=== PATIENT | female | born 1995 | race Caucasian/White ===

== ENCOUNTER → 2016-12-17 | Outpatient (CLI) | payer OTHER ==
[~2016-12-17] MED LIST: BCPILLS PO; PRENTAB26 PO
[2016-12-17 12:10] LABS: HEMATOCRIT 33.4 % (37-47)
[2016-12-17 12:48] LABS: URINE APPEARANCE CLEAR (CLEAR); URINE BILIRUBIN NEG (NEG); URINE COLOR YELLOW; URINE EPITHELIAL CELL AUTO >30 /lpf (0-5); URINE NITRITE NEG (NEG); URINE PH 8.5 (4.5-7.5); URINE SPECIFIC GRAVITY 1.017 (1.000-1.030); UROBILINOGEN NEG (NEG)
[2016-12-17 12:54] LABS: MANUAL MICROSCOPIC REQUIRED? NO; REVIEW REQ? NO
[2016-12-17 13:10] LABS: GTGD 50 Grams
== END | disposition home or self-care (01) ==
LOC: C.LAB1850 11:16
PROVIDERS: ATTEND Obstetrics & Gynecology
DX: Z34.03 Encounter for supervision of normal first pregnancy, third trimester (principal)

== ENCOUNTER → 2016-12-24 | Outpatient (CLI) | payer OTHER | END | disposition home or self-care (01) | LOC: C.LAB1850 08:50 | PROVIDERS: ATTEND Obstetrics & Gynecology | DX: O28.1 Abnormal biochemical finding on antenatal screening of mother (principal) ==

== ENCOUNTER → 2017-01-14 | Outpatient (CLI) | payer OTHER | END | disposition home or self-care (01) | LOC: C.LABSPEC 13:49 | PROVIDERS: ATTEND Obstetrics & Gynecology | DX: O12.13 Gestational proteinuria, third trimester (principal) ==

== ENCOUNTER → 2017-01-15 | Outpatient (CLI) | payer OTHER ==
[2017-01-15 15:01] LABS: PATIENT HEIGHT 152.4 cm
[2017-01-15 15:46] LABS: URINE TOTAL PROTEIN 12.7 mg/dl (0-11.9)
[2017-01-15 15:55] LABS: CREATININE 0.73 mg/dl (0.6-1.2); URINE TOTAL PROTEIN CALC 114.3 mg/24 hr (0-149.1)
== END | disposition home or self-care (01) ==
LOC: C.LAB 14:49
PROVIDERS: ATTEND Obstetrics & Gynecology
DX: O12.13 Gestational proteinuria, third trimester (principal)

== ENCOUNTER → 2017-02-11 | Outpatient (CLI) | payer OTHER | END | disposition home or self-care (01) | LOC: C.LABSPEC 13:42 | PROVIDERS: ATTEND Obstetrics & Gynecology | DX: Z34.03 Encounter for supervision of normal first pregnancy, third trimester (principal) ==

== ENCOUNTER 2017-03-01 23:25 | Inpatient (IN) | payer OTHER ==
[~2017-03-01] VITALS: Ht 162.6 cm; Wt 78.0 kg
[~2017-03-01 23:25] MED LIST changes: -PRENTAB26 PO
[2017-03-02] MEDS: LACTATED RINGER'S 1000ML 1,000 ML IV SCH ×2 (00:26→11:39)
[2017-03-02] MEDS ORDERED: LACTATED RINGER'S 1000ML 1,000 ML IV PRN (00:26)
[2017-03-02] MEDS ORDERED: PENICILLIN G POTASSIUM IV 6 MU in DEXTROSE 5% 250ML 250 ML IV STA (00:43)
[2017-03-02 00:53] LABS: HEMATOCRIT 38.2 % (37-47); MEAN CELL VOLUME 94.3 fL (80-100); MEAN CORPUSCULAR HEMOGLOBIN 31.9 pg (25-34); MEAN CORPUSCULAR HGB CONC 33.8 g/dl (32-36); MEAN PLATELET VOLUME 10.6 fL (7.4-10.4); PLATELET COUNT 157 K/uL (130-400); RED BLOOD COUNT 4.05 M/uL (4.2-5.4); WHITE BLOOD COUNT 9.26 K/uL (4.8-10.8)
[2017-03-02 01:22] VITALS: Ht 162.6 cm; Wt 78.0 kg
[2017-03-02] MEDS ORDERED: PRENTAB26 PO (01:30)
[2017-03-02] MEDS ORDERED: BUPIVACAINE 0.25% 30 ML VIAL ONE (01:59)
[2017-03-02] MEDS ORDERED: EpHEDrine SULFATE INJ 50 MG/ML AMP ONE (01:59)
[2017-03-02] MEDS ORDERED: FENTANYL CITRATE INJ 50 MCG/1 ML 2 ML VIAL ONE (02:00)
[2017-03-02] MEDS ORDERED: FENTANYL 2MCG/ML ROPIV 1.25MG/ML 100ML BAG EPI ONE (02:00)
[2017-03-02] MEDS ORDERED: LACTATED RINGER'S 1000ML 500 ML IV PRN ×2 (03:07→10:13)
[2017-03-02] MEDS ORDERED: NALOXONE HCL INJ 1 MG in SODIUM CHLORIDE 0.9% 1000ML 1,000 ML IV PRN (03:07)
[2017-03-02] MEDS ORDERED: EpHEDrine SULFATE INJ 50 MG/ML AMP IV PRN (03:15)
[2017-03-02] MEDS ORDERED: FENTANYL 2MCG/ML ROPIV 1.25MG/ML 100ML BAG EPI PRN (03:15)
[2017-03-02] MEDS ORDERED: DiphenhydrAMINE HCL 50 MG/ML VIAL IV PRN (03:15)
[2017-03-02] MEDS ORDERED: NALOXONE HCL INJ 0.4 MG/1 ML VIAL/CARP IV PRN (03:15)
[2017-03-02] MEDS ORDERED: ONDANSETRON INJ 2 MG/ML 2 ML VIAL IV PRN (03:15)
[2017-03-02] MEDS ORDERED: NALBUPHINE HCL INJ 10 MG/ML AMP IV PRN (03:15)
[2017-03-02] MEDS: PENICILLIN G POTASSIUM IV 3 MU in DEXTROSE 5% 100ML 100 ML IV PRN ×2 (04:54→09:02)
[2017-03-02] MEDS ORDERED: OXYTOCIN 30 UNITS/500ML NSS IV ONE (07:30)
[2017-03-02] MEDS ORDERED: OXYTOCIN 30 UNITS/500ML NSS IV PRN ×2 (10:15→14:00)
[2017-03-02] MEDS ORDERED: OXYTOCIN INJ 20 UNITS in LACTATED RINGER'S 1000ML 1,000 ML IV SCH (13:51)
[2017-03-02] MEDS ORDERED: HYDROCORTISONE ACETATE 25 MG SUPP PR PRN (14:00)
[2017-03-02] MEDS ORDERED: ACETAMINOPHEN 325 MG TAB PO PRN (14:00)
[2017-03-02] MEDS ORDERED: BENZOCAINE 20% AER SPR 82.5 GM CAN EXT PRN (14:00)
[2017-03-02] MEDS ORDERED: ACETAMINOPHEN/CODEINE 300/30MG TAB PO PRN ×2 (14:00)
[2017-03-02] MEDS ORDERED: LANOLIN OINT EXT PRN ×2 (14:00)
[2017-03-02] MEDS ORDERED: SUPERCREAM 0.870 % 15GM JAR EXT PRN (14:00)
--- NOTE | 2017-03-02 14:08 | Anesthesia Procedure Note ---
Anesthesia Epidural Removal Nt Date & Time March 02, 2017 at 14:08 Vital Signs Pain Intensity: 0.0 Notes Mental Status: alert / awake / arousable, participated in evaluation Nausea / Vomiting: adequately controlled Pain: adequately controlled Airway Patency, RR, SpO2: stable & adequate BP & HR: stable & adequate Hydration State: stable & adequate Neuraxial Anesthesia: was administered Anesthetic Complications: no major complications apparent, pt satisfied with anesthetic care Epidural: removed without complications, with tip intact
--- NOTE | 2017-03-02 14:20 | Medical Student: [facility] ---
Medical Student Delivery Note Nathalia (21F ) arrived at the hospital in active labor on 03/02/2017. Pt is 39 weeks gestation, GBS+, blood type A+. Epidural given at the request of the pt. Baby delivered in in occiput anterior position. Mouth and nose suctioned with bulb and nuchal cord found but reduced. Female baby delivered with gentle traction. Delayed cord clamping was performed. Cord was clamped and cord blood obtained. Second-degree laceration of the vaginal wall in the midline was repaired. Estimated blood loss was 300cc. Mother and baby stable.
--- NOTE | 2017-03-02 14:36 | DELIVERY SUMMARY ---
DATE OF OPERATION: 03/02/2017 DELIVERY SUMMARY The patient dilated to complete and pushed to deliver a viable female infant, Apgars 8 and 9, via over second degree perineal laceration. Mouth and nose bulb suctioned at the perineum. Nuchal cord x1 reduced at the perineum. Shoulders and body delivered with ease. vigorous and crying at . Cord clamped at approximately 40 sec of life. Infant to maternal abdomen where cord doubly clamped and cut. Placenta delivered spontaneously and intact with 3-vessel cord. Hemostasis achieved with dilute Pitocin and uterine massage. The cervix and sulci intact. Laceration repaired in the usual fashion using 3-0 Vicryl. Mother and baby stable in recovery. EBL 300 mL. I attest to the content of the Intraoperative Record and any orders documented therein. Any exceptions are noted below. MTDD
[2017-03-02 17:59] VITALS: BP 129/78; PULSE 71; TEMP 36.8
[2017-03-02] MEDS: IBUPROFEN 600 MG TAB PO PRN (19:49)
[2017-03-02] MEDS: DOCUSATE SODIUM 100 MG CAP PO SCH (19:49)
[2017-03-02 19:50] VITALS: BP 128/85; PULSE 68; TEMP 36.9
[2017-03-03 00:05] VITALS: BP 114/63; PULSE 66; TEMP 36.7
[2017-03-03 04:30] VITALS: BP 112/66; PULSE 83; TEMP 36.9
--- NOTE | 2017-03-03 06:53 | Progress Note ---
Subjective March 03, 2017. Subjective conversation w/ patient, physical exam, lab review Ambulation: ambulating normally Voiding: no voiding problems Passing Gas: Yes Diet Tolerance: Regular Diet Lochia: Small Feeding Type: Breast Feeding Pain: mild Comment: Patient was seen at the bedside. No acute event overnight. Review of Systems Constitutional: No fever Respiratory: No cough, No shortness of breath Cardiac: No chest pain Breast: No breast lump Abdomen: No nausea, No pain, No vomiting Female : No dysuria, No urinary frequency Denies headache Objective Vital Signs Date Time Temp Pulse Resp B/P Pulse Ox O2 Delivery O2 Flow Rate FiO2 03/03/17 04:30 36.9 83 18 112/66 Room Air 03/03/17 00:05 Room Air 03/03/17 00:05 36.7 66 18 114/63 Room Air 03/02/17 19:50 Room Air 03/02/17 19:50 36.9 68 20 128/85 Room Air 03/02/17 17:59 36.8 71 20 129/78 Room Air Physical Exam General Appearance: WELL-APPEARING, WD/WN, NO APPARENT DISTRESS Respiratory/Chest: chest non-tender, lungs clear, normal breath sounds, no respiratory distress Cardiovascular: regular rate, rhythm Abdomen: normal bowel sounds, non tender, soft Fundus: Firm, Relation to Umbilicus (1cm below U) Extremities: non-tender, no pedal edema, no calf tenderness Medications Current Inpatient Medications Medications (Trade) Dose Ordered Sig/Parris Route Start Time Stop Time Status Last Admin Dose Admin Oxytocin (Pitocin IV) 30 units UD PRN IV 03/02/17 14:00 04/01/17 13:59 Benzocaine (Dermoplast Aero Spr) 1 appln PRN PRN EXT 03/02/17 14:00 04/01/17 13:59 03/02/17 19:50 1 APPLN Cocaine HCl (Supercream 0.870% Cr) BID PRN EXT 03/02/17 14:00 03/16/17 13:59 03/02/17 19:50 15 GM Hydrocortisone Acetate (Anusol Hc Supp) 25 mg BID PRN MN 03/02/17 14:00 04/01/17 13:59 Lanolin (Lanolin Oint) PRN PRN EXT 03/02/17 14:00 04/01/17 13:59 Ibuprofen (Motrin Tab) 600 mg Q4H PRN PO 03/02/17 14:00 04/01/17 13:59 03/02/17 19:49 600 MG Acetaminophen (Tylenol Tab) 650 mg Q6H PRN PO 03/02/17 14:00 04/01/17 13:59 Acetaminophen/ Codeine Phosphate (Tylenol w/ Codeine #3 Tab) 1 tab Q4H PRN PO 03/02/17 14:00 04/01/17 13:59 Acetaminophen/ Codeine Phosphate (Tylenol w/ Codeine #3 Tab) 2 tab Q4H PRN PO 03/02/17 14:00 04/01/17 13:59 Docusate Sodium (coLACE CAP) 100 mg BID PO 03/02/17 20:00 04/01/17 19:59 03/02/17 19:49 100 MG Assessment and Plan Post- Day#: 1 Continue Routine Care: A/P: This is a 21 y/o female, , s/p normal vaginal delivery. She is ambulating and clinically stable. Plan: - Vitals signs are reviewed and WNL (Tmax 36.9 ) - Last Hgb is 12.9 - Blood type A+, GBS positive, Rubella Immune - Routine care - Encourage ambulation, monitor and control pain with medication as needed , continue with regular diet as tolerated and monitor lochia - Stool softeners and sitz bath recommended - Encourage breast feeding and educate about breast feeding Resident Physician Supervision Note: I was present with Dr. Vick during the history and exam. I discussed the case with the resident and agree with the findings and plan as documented in the note. Any exceptions or clarifications are listed here: Doing well. Routine care. Documented By: Niharika Woodard
[2017-03-03 07:14] VITALS: BP 115/74; PULSE 72; TEMP 37; O2SAT 97
[2017-03-03] MEDS: DOCUSATE SODIUM 100 MG CAP PO SCH ×2 (07:37→20:26)
[2017-03-03] MEDS: IBUPROFEN 600 MG TAB PO PRN ×2 (07:37→22:33)
[2017-03-03 12:00] VITALS: BP 119/69; PULSE 83; TEMP 36.8; O2SAT 97
[2017-03-03 16:50] VITALS: BP 124/81; PULSE 65; TEMP 36.8; O2SAT 98
[2017-03-04 00:15] VITALS: BP 131/86; PULSE 68; TEMP 36.6; O2SAT 96
--- NOTE | 2017-03-04 07:07 | Progress Note ---
Subjective March 04, 2017. Subjective conversation w/ patient, physical exam Voiding: no voiding problems Feeding Type: Breast Feeding Objective Vital Signs Date Time Temp Pulse Resp B/P Pulse Ox O2 Delivery O2 Flow Rate FiO2 03/04/17 00:15 96 Room Air 03/04/17 00:15 36.6 68 18 131/86 96 Room Air 03/03/17 16:50 36.8 65 18 124/81 98 Room Air 03/03/17 16:50 98 Room Air 03/03/17 12:00 36.8 83 16 119/69 97 03/03/17 08:10 Room Air 03/03/17 07:14 37.0 72 16 115/74 97 Room Air Physical Exam General Appearance: WELL-APPEARING, NO APPARENT DISTRESS Fundus: Firm, Non-Tender Extremities: no calf tenderness Assessment and Plan Post- Day#: 2 Continue Routine Care: - pt desires d/c - instructions given - f/u in 6 weeks
--- NOTE | 2017-03-04 07:09 | Discharge Instructions ---
Discharge Instructions Date of Service March 04, 2017. Admission Reason for Admission: LABOR Discharge Discharge Diagnosis / Problem: same Discharge Goals Goal(s): Routine recovery after delivery Medications Continue Dispensed Medications: supercream, dermaplast Activity Recommendations Activity Limitations: as noted below . Instructions / Follow-Up Instructions / Follow-Up ACTIVITY RECOMMENDATIONS: * Gradual return to full activity over the next 2-3 weeks. * No lifting - nothing heavier than baby over the next 2-3 weeks. * Do not engage in vigorous exercise, sexual activity or sports until cleared by your physician. * Do not drive or operate any motorized equipment until cleared by your physician. * You may shower/bathe daily. MEDICATIONS: For discomfort or pain, you may use Acetaminophen (Tylenol), Ibuprofen (Advil), or Naproxen (Aleve) following the package directions. For constipation you may use Colace following the package directions. BREAST CARE: If you are not breast feeding: * Wear a supportive bra 24 hours a day for one to two weeks. * Avoid stimulating your breasts and nipples as much as possible during the first few weeks after delivery. * When taking a shower, have the warm water hit your back, not breasts. * When your breasts feel full, apply ice packs. Usually three to four times a day helps ease the discomfort. * Take a mild pain medication (Tylenol / Motrin) when you are uncomfortable. If breast feeding: * Use breast milk to lubricate nipples. Lansinoh cream may be used for sore nipples. You do not need to remove cream prior to breast feeding. If using a different brand of cream, check the label for directions regarding removal of cream prior to nursing. * Wear a supportive bra. * If having problems with breasts or breast feeding, call a health consultant or your health care provider. EPISIOTOMY CARE: After delivery, if you have an episiotomy (stitches), the following steps will ease discomfort and aid healing. * For the first 24 hours after delivery, place ice packs next to your episiotomy to help reduce swelling. * After the first 24 hour-period, sitz baths, either portable or in the tub, are suggested. A shower with a shower arm sprayed over the episiotomy may be comforting. * Ivone care should be done after each voiding and bowel movement. Squirt warm water from a plastic bottle over the perineum (region of the body between the anus and urinary opening) and pat dry. * Use Dermoplast to ease discomfort. Shake container. Burt directly over the episiotomy. Place a Tucks on a clean sanitary pad next to your episiotomy. SPECIAL CARE INSTRUCTIONS: When you are discharged from the hospital, it is important for you to follow the instructions listed below: * During the first week at home, you should be able to care for yourself and your baby. In addition, the usual light household activities are encouraged. * Limit your activities to the way you feel. Do not try to clean the house or move furniture. Be sensible. * If you actively engage in sports and have done so up until the time of your delivery, you may resume these activities as soon as you feel able. This may take up to one month or even longer. Use good judgment. * Continue to take your vitamins for at least six weeks after the of your baby. * Your diet need not be limited unless you were on a special diet before your delivery. Breast-feeding mothers need around 2500 calories per day and at least 64-80 ounces of fluid per day (8 to 10 glasses). * You should eat foods from the four major food groups. Crash diets or fad diets are to be avoided. Eating lean meats, fresh fruits and vegetables, low-fat dairy products, high fiber foods and a regular exercise program, will help you get back to your pre- weight without putting your health at risk. * Constipation is sometimes a problem after delivery. Take a mild laxative as needed. If breast feeding, Milk of Magnesia is acceptable to use. You may use a suppository or Fleets enema if no episiotomy. * A daily shower or tub bath is suggested. Be sure to thoroughly and gently dry the perineum. * A bloody vaginal discharge will usually continue until around four weeks post . A small amount of bleeding may continue for as long as six weeks. Vaginal discharge changes from the bright red bleeding after delivery to pink then brownish and finally yellowish-pink before becoming white and disappearing. * Bleeding may increase with activity. Your first period may come in 4-8 weeks. If you are breast feeding, your period may be delayed even longer. * Ansley (sex) can begin whenever both you and your partner feel comfortable and do not have any form of genital infection. It is recommended that you wait at least six weeks for internal and external healing to occur. If you have questions, please talk to your health care practitioner. A condom should be used to prevent infection and . * Foreplay, gentle intercourse and lubrication is very important the first several times to prevent pain. A water-based lubricant such as K-Y jelly or Astroglide may be used. * If you have RH negative blood and your baby is RH positive, you will receive RHOGAM by injection prior to discharge. The nurse will give you a card to keep with you that has the date and place that you received RHOGAM after delivery. * During your care, you had a Rubella screen done to check for the presence of rubella antibodies in your blood. If your test was negative, you will receive a Rubella vaccine prior to discharge. This vaccine may cause a fever, soreness at the injection site and flu-like symptoms. If these symptoms persist, notify your health care practitioner. is not advised for one month after a Rubella vaccine. * Verbalizes understanding of car seat law as reviewed with patient nursing. * Car Seat hand-out given and reviewed with patient by nursing. * Shaken baby information reviewed with patient by nursing. Call you doctor if: * Heavy bleeding (saturating several pads an hour) or passing clots the size of your fist. * A fever >101 degrees F (38.3 degrees C) on two occasions four hours apart and /or chills. * Unusual pain in the pelvic or vaginal areas. * "Baby Blues" lasting longer than two weeks. If you have any questions or concerns, call your health care practitioner at . FOLLOW UP VISIT: * Please call the office at to schedule a 6 week examination. It is important you keep this appointment. It is important for you to make arrangements for either yearly or twice yearly check-ups thereafter. Current Hospital Diet Patient's current hospital diet: Regular OB Diet Discharge Diet Recommended Diet: Regular OB Diet Pending Studies Studies pending at discharge: no Medical Emergencies . Who to Call and When: Medical Emergencies: If at any time you feel your situation is an emergency, please call 911 immediately. . Non-Emergent Contact Non-Emergency issues call your: Fire Management Technician Call Non-Emergent contact if: you have a fever, temperature is above 100.5 . . "Provider Documentation" section prepared by Samuel Argueta. . VTE Core Measure Inpt VTE Proph given/why not?: Treatment not indicated
[2017-03-04 08:00] VITALS: BP 122/83; PULSE 61; TEMP 36.9
[2017-03-04 10:53] VITALS: BP_DIAS 83; PULSE 61; TEMP 36.9
== END 2017-03-04 10:00 | disposition home or self-care (01) | DRG 775 ==
LOC: C.LD 23:25 → C.OPB 23:25 → C.LD 03-02 00:27 → C.OBG 03-02 17:44
PROVIDERS: ADMIT Obstetrics & Gynecology; ATTEND Obstetrics & Gynecology
PROC: 0KQM0ZZ Repair Perineum Muscle, Open Approach (ICD-10-PCS; principal; 2017-03-02)
PROC: 10E0XZZ Delivery of Products of Conception, External Approach (ICD-10-PCS; principal; 2017-03-02)
DX: O42.92 Full-term premature rupture of membranes, unspecified as to length of time between rupture and onset of labor (principal); O99.824 Streptococcus B carrier state complicating childbirth; O70.1 Second degree perineal laceration during delivery; O76 Abnormality in fetal heart rate and rhythm complicating labor and delivery; O69.81X0 Labor and delivery complicated by cord around neck, without compression, not applicable or unspecified; Z3A.39 39 weeks gestation of pregnancy; Z37.0 Single live birth